=== PATIENT | female | born 1965 | race Caucasian/White ===

== ENCOUNTER 2016-07-06 13:26 | Emergency (ER) | payer OTHER ==
[~2016-07-06] VITALS: Ht 162.6 cm; Wt 96.8 kg
[~2016-07-06 13:26] MED LIST: CHONDROITIN SU250 MG PO; CYCLOBENZAPRINE10 MG PO; IBUPROFEN400 MG PO; MULTI-DAY VITA1 EACH PO; NAPROXEN500 MG PO; ORTHO TRI-CY1 TABLE1 PO; PERCOCET 5/31 TABLET PO
[2016-07-06] MEDS ORDERED: PERCOCET 5/31 TABLET PO (16:13)
[2016-07-06 16:45] VITALS: BP 133/97
== END 2016-07-06 17:09 | disposition home or self-care (01) ==
LOC: EME 13:26
PROC: 2W2CX4Z Dressing of Right Lower Arm using Bandage (ICD-10-PCS; principal; 2016-07-06)
DX: T22.111A Burn of first degree of right forearm, initial encounter (principal); X03.0XXA Exposure to flames in controlled fire, not in building or structure, initial encounter; Z87.891 Personal history of nicotine dependence
CPT/HCPCS: 99281; 99285; J1885; J2270